=== PATIENT | male | born 1990 | race Caucasian/White ===

== ENCOUNTER 2018-02-08 23:17 | Emergency (ER) | payer SELFPAY ==
[2018-02-08] MEDS ORDERED: Famotidine 20 MG/2 ML SDV IVPUSH ONE (23:43)
[2018-02-08] MEDS ORDERED: Alum Hydrox/Mag Hydrox/Simeth 15 ML, Metoclopramide 5 MG, Lidocaine 2% 5 ML PO ONE ×3 (23:43)
[2018-02-08] MEDS ORDERED: Sodium Chloride 0.9% 2.5 ML Syringe FLUSH PRN ×2 (23:43)
[2018-02-08] MEDS ORDERED: Sodium Chloride 0.9% 10 ML Syringe FLUSH PRN (23:43)
[2018-02-08] MEDS ORDERED: Sodium Chloride 0.9% 1,000 ML IV ONE (23:43)
--- NOTE | 2018-02-08 23:43 | EDM.PDOC ---
ED HPI GENERAL MEDICAL PROBLEM - General Chief Complaint: Abdominal Pain Stated Complaint: PT HAS CHEST PAINS Time Seen by Provider: 02/08/18 23:36 Source of Information: Reports: Patient History Limitations: Reports: No Limitations - History of Present Illness INITIAL COMMENTS - FREE TEXT/NARRATIVE: HISTORY AND PHYSICAL: History of present illness: 27-year-old male presented to emergency department with chief complaint of right lower quadrant and chest pain 6-7 weeks. Patient states that for the past 6-7 weeks he has had mild chest pain with reflux and sore throat. He does take Prilosec on a daily basis for heartburn. States he is also having some right low quadrant pain. Reports fever as well as diarrhea 3 weeks ago. No current symptoms. States that the pain is sharp and pressure-like in his chest as well as right lower quadrant. He's been taking as above Prilosec as well as Tylenol. Denies any history of abdominal surgery. Denies any associated nausea, vomiting, bloody stool, or dark tarry stools. Patient does admit to drinking alcohol for approximately 1 week. States that he does not normally drink every day but when he has days off he does. He currently denies any palpitations, shortness of breath, syncopal episodes, or focal neurologic deficits. On exam patient has sharp right lower quadrant pain on palpation. No other acute abnormalities found. Initial EKG shows normal sinus rhythm with a rate of [address] changes. CBC, CMP, troponin, lipase, urinalysis all unremarkable Review of systems: As per history of present illness and below otherwise all systems reviewed and negative. Past medical history: As per history of present illness and as reviewed below otherwise noncontributory. Surgical history: As per history of present illness and as reviewed below otherwise noncontributory. Social history: No reported history of drug or alcohol abuse. Family history: As per history of present illness and as reviewed below otherwise noncontributory. Physical exam: HEENT: Atraumatic, normocephalic, pupils reactive, negative for conjunctival pallor or scleral icterus, mucous membranes moist, throat clear, neck supple, nontender, trachea midline. Lungs: Clear to auscultation, breath sounds equal bilaterally, chest nontender. Heart: S1S2, regular, negative for clicks, rubs, or JVD. Abdomen: Soft, nondistended, right lower quadrant pain. Negative for masses or hepatosplenomegaly. Negative for costovertebral tenderness. Pelvis: Stable nontender. Genitourinary: Deferred. Rectal: Deferred. Extremities: Atraumatic, negative for cords or calf pain. Neurovascular unremarkable. Neuro: Awake, alert, oriented. Cranial nerves II through XII unremarkable. Cerebellum unremarkable. Motor and sensory unremarkable throughout. Exam nonfocal. Diagnostics: CBC, CMP, troponin, EKG, rapid strep, chest x-ray, CT abdomen and pelvis Therapeutics: 1 L normal saline, famotidine 20 mg IV 1, GI cocktail, Carafate Impression: GERD Atypical chest pain Right lower quadrant pain Plan: CBC, CMP, troponin, EKG, rapid strep, and chest x-ray were all unremarkable. CT abdomen and pelvis was unremarkable for any acute process but did show some hepatic steatosis. I did talk to the patient about this and discussed with him about cessation of all alcohol use as this is most likely the etiology of his hepatic steatosis. I also instructed him to follow-up with a primary care provider as he would most likely benefit from further testing possibly for H. pylori and EGD for his chronic GERD. He should return to the emergency department if he has any new or worsening symptoms. I did give him a prescription for Carafate. Definitive disposition and diagnosis as appropriate pending reevaluation and review of above. chest pain Pain Score (Numeric/FACES): 6 - Related Data Allergies Allergy/AdvReac Type Severity Reaction Status Date / Time No Known Allergies Allergy Verified 02/08/18 23:23 Home Meds: Home Meds . [No Known Home Meds] 02/08/18 [History] Social & Family History - Family History Family Medical History: Noncontributory - Tobacco Use Smoking Status *Q: Never Smoker Second Hand Smoke Exposure: No - Caffeine Use Caffeine Use: Reports: Energy Drinks, Tea - Recreational Drug Use Recreational Drug Use: No ED ROS GENERAL - Review of Systems Review Of Systems: ROS reveals no pertinent complaints other than HPI. ED EXAM, GENERAL - Physical Exam Exam: See Below Course - Vital Signs Last Recorded V/S: Last Vital Signs Temp 98.7 F 02/08/18 23:25 Pulse 66 02/09/18 01:36 Resp 18 02/09/18 01:36 BP 143/94 H 02/09/18 01:36 Pulse Ox 95 02/09/18 00:08 - Orders/Labs/Meds Orders: Active Orders 24 hr Category Date Time Status EKG Documentation Completion [RC] STAT Care 02/08/18 23:43 Active Abdomen Pelvis w Cont [CT] Stat Exams 02/08/18 23:43 Taken Chest 1V Frontal [CR] Stat Exams 02/08/18 23:43 Taken CULTURE STREP A CONFIRMATION [RM] Stat Lab 02/08/18 23:45 Results STREP SCRN A RAPID W CULT CONF [RM] Stat Lab 02/08/18 23:45 Ordered UA W/MICROSCOPIC [URIN] Stat Lab 02/08/18 23:45 Ordered Sodium Chloride 0.9% [Saline Flush] Med 02/08/18 23:43 Active 10 ml FLUSH ASDIRECTED PRN Sodium Chloride 0.9% [Saline Flush] Med 02/08/18 23:43 Active 2.5 ml FLUSH ASDIRECTED PRN Sodium Chloride 0.9% [Saline Flush] Med 02/08/18 23:43 Active 2.5 ml FLUSH ASDIRECTED PRN Saline Lock Insert [OM.PC] Stat Oth 02/08/18 23:43 Ordered Medication Orders Sodium Chloride (Saline Flush) 2.5 ml FLUSH ASDIRECTED PRN PRN Reason: Keep Vein Open Last Admin: 02/08/18 23:41 Dose: 2.5 ml Sodium Chloride (Saline Flush) 10 ml FLUSH ASDIRECTED PRN PRN Reason: Keep Vein Open Last Admin: 02/08/18 23:40 Dose: 10 ml Sodium Chloride (Saline Flush) 2.5 ml FLUSH ASDIRECTED PRN PRN Reason: Keep Vein Open Labs: Laboratory Tests 02/08/18 02/08/18 02/08/18 Range/Units 23:40 23:40 23:40 WBC 8.32 (4.0-11.0) K/uL RBC 5.32 (4.50-5.90) M/uL Hgb 16.6 (13.0-17.0) g/dL Hct 46.3 (38.0-50.0) % MCV 87.0 (80.0-98.0) fL MCH 31.2 (27.0-32.0) pg MCHC 35.9 (31.0-37.0) g/dL RDW Std Deviation 39.1 (28.0-62.0) fl RDW Coeff of Isabelle 12 (11.0-15.0) % Plt Count 261 (150-400) K/uL MPV 10.50 (7.40-12.00) fL Neut % (Auto) 57.0 (48.0-80.0) % Lymph % (Auto) 35.1 (16.0-40.0) % Sac % (Auto) 6.9 (0.0-15.0) % Eos % (Auto) 0.8 (0.0-7.0) % Baso % (Auto) 0.2 (0.0-1.5) % Neut # (Auto) 4.7 (1.4-5.7) K/uL Lymph # (Auto) 2.9 H (0.6-2.4) K/uL Sac # (Auto) 0.6 (0.0-0.8) K/uL Eos # (Auto) 0.1 (0.0-0.7) K/uL Baso # (Auto) 0.0 (0.0-0.1) K/uL Nucleated RBC % 0.0 /100WBC Nucleated RBCs # 0 K/uL INR 1.01 Sodium 139 (136-148) mmol/L Potassium 4.2 (3.5-5.1) mmol/L Chloride 103 (98-107) mmol/L Carbon Dioxide 28.3 (21.0-32.0) mmol/L BUN 11 (7.0-18.0) mg/dL Creatinine 1.1 (0.8-1.3) mg/dL Est Cr Clr Drug Dosing 108.76 mL/min Estimated GFR (MDRD) > 60.0 ml/min Glucose 84 (74-106) mg/dL Calcium 9.3 (8.5-10.1) mg/dL Total Bilirubin 0.6 (0.2-1.0) mg/dL AST 47 H (15-37) IU/L ALT 141 H (14-63) IU/L Alkaline Phosphatase 104 (46-116) U/L Troponin I < 0.050 (0.000-0.056) ng/mL Total Protein 8.2 (6.4-8.2) g/dL Albumin 4.2 (3.4-5.0) g/dL Globulin 4.0 H (2.0-3.5) g/dL Albumin/Globulin Ratio 1.1 L (1.3-2.8) Amylase 33 (25-115) U/L Lipase 113 (73-393) U/L Urine Color Urine Appearance Urine pH (5.0-8.0) Ur Specific Derwent (1.001-1.035) Urine Protein (NEGATIVE) mg/dL Urine Glucose (UA) (NEGATIVE) mg/dL Urine Ketones (NEGATIVE) mg/dL Urine Occult Blood (NEGATIVE) Urine Nitrite (NEGATIVE) Urine Bilirubin (NEGATIVE) Urine Urobilinogen (<2.0) EU/dL Ur Leukocyte Esterase (NEGATIVE) Urine RBC (0-2/HPF) Urine WBC (0-5/HPF) Ur Epithelial Cells (NONE-FEW) Urine Bacteria (NEGATIVE) Urine Mucus (NONE-MOD) 02/08/18 Range/Units 23:45 WBC (4.0-11.0) K/uL RBC (4.50-5.90) M/uL Hgb (13.0-17.0) g/dL Hct (38.0-50.0) % MCV (80.0-98.0) fL MCH (27.0-32.0) pg MCHC (31.0-37.0) g/dL RDW Std Deviation (28.0-62.0) fl RDW Coeff of Isabelle (11.0-15.0) % Plt Count (150-400) K/uL MPV (7.40-12.00) fL Neut % (Auto) (48.0-80.0) % Lymph % (Auto) (16.0-40.0) % Sac % (Auto) (0.0-15.0) % Eos % (Auto) (0.0-7.0) % Baso % (Auto) (0.0-1.5) % Neut # (Auto) (1.4-5.7) K/uL Lymph # (Auto) (0.6-2.4) K/uL Sac # (Auto) (0.0-0.8) K/uL Eos # (Auto) (0.0-0.7) K/uL Baso # (Auto) (0.0-0.1) K/uL Nucleated RBC % /100WBC Nucleated RBCs # K/uL INR Sodium (136-148) mmol/L Potassium (3.5-5.1) mmol/L Chloride (98-107) mmol/L Carbon Dioxide (21.0-32.0) mmol/L BUN (7.0-18.0) mg/dL Creatinine (0.8-1.3) mg/dL Est Cr Clr Drug Dosing mL/min Estimated GFR (MDRD) ml/min Glucose (74-106) mg/dL Calcium (8.5-10.1) mg/dL Total Bilirubin (0.2-1.0) mg/dL AST (15-37) IU/L ALT (14-63) IU/L Alkaline Phosphatase (46-116) U/L Troponin I (0.000-0.056) ng/mL Total Protein (6.4-8.2) g/dL Albumin (3.4-5.0) g/dL Globulin (2.0-3.5) g/dL Albumin/Globulin Ratio (1.3-2.8) Amylase (25-115) U/L Lipase (73-393) U/L Urine Color YELLOW Urine Appearance CLEAR Urine pH 6.0 (5.0-8.0) Ur Specific Derwent 1.010 (1.001-1.035) Urine Protein NEGATIVE (NEGATIVE) mg/dL Urine Glucose (UA) NEGATIVE (NEGATIVE) mg/dL Urine Ketones NEGATIVE (NEGATIVE) mg/dL Urine Occult Blood NEGATIVE (NEGATIVE) Urine Nitrite NEGATIVE (NEGATIVE) Urine Bilirubin NEGATIVE (NEGATIVE) Urine Urobilinogen 0.2 (<2.0) EU/dL Ur Leukocyte Esterase NEGATIVE (NEGATIVE) Urine RBC NONE SEEN (0-2/HPF) Urine WBC 0-2 (0-5/HPF) Ur Epithelial Cells RARE (NONE-FEW) Urine Bacteria RARE (NEGATIVE) Urine Mucus LIGHT (NONE-MOD) Meds: Medications Generic Name Dose Route Start Last Admin Trade Name Freq PRN Reason Stop Dose Admin Sodium Chloride 2.5 ml 02/08/18 23:43 02/08/18 23:41 Saline Flush FLUSH 2.5 ml ASDIRECTED PRN Administration Keep Vein Open Sodium Chloride 10 ml 02/08/18 23:43 02/08/18 23:40 Saline Flush FLUSH 10 ml ASDIRECTED PRN Administration Keep Vein Open Sodium Chloride 2.5 ml 02/08/18 23:43 Saline Flush FLUSH ASDIRECTED PRN Keep Vein Open Discontinued Medications Generic Name Dose Route Start Last Admin Trade Name Marybel PRN Reason Stop Dose Admin Al Hydroxide/Mg Hydroxide 15 0 ml 02/08/18 23:43 02/08/18 23:56 ml/ Metoclopramide HCl 5 mg/ PO 02/08/18 23:44 1 each Lidocaine HCl 5 ml ONETIME ONE Administration Famotidine 20 mg 02/08/18 23:43 02/08/18 23:55 Pepcid IVPUSH 02/08/18 23:44 20 mg ONETIME ONE Administration Sodium Chloride 1,000 mls @ 999 mls/hr 02/08/18 23:43 02/08/18 23:52 Normal Saline IV 02/09/18 00:43 999 mls/hr BOLUS ONE Administration Iopamidol 100 ml 02/09/18 00:44 02/09/18 00:45 Isovue Multipack-370 (76%) IVPUSH 02/09/18 00:45 100 ml ONETIME STA Administration Departure - Departure Time of Disposition: 01:56 Disposition: Home, Self-Care 01 Condition: Good Clinical Impression: Hepatic steatosis GERD (gastroesophageal reflux disease) Qualifiers: Esophagitis presence: esophagitis presence not specified Qualified Code(s): K21.9 - Gastro-esophageal reflux disease without esophagitis - Discharge Information Referrals: PCP,None [Primary Care Provider] - Forms: ED Department Discharge Additional Instructions: My general discharge The following information is given to patients seen in the emergency department who are being discharged to home. This information is to outline your options for follow-up care. We provide all patients seen in our emergency department with a follow-up referral. The need for follow-up, as well as the timing and circumstances, are variable depending upon the specifics of your emergency department visit. If you don't have a primary care physician on staff, we will provide you with a referral. We always advise you to contact your personal physician following an emergency department visit to inform them of the circumstance of the visit and for follow-up with them and/or the need for any referrals to a consulting specialist. The emergency department will also refer you to a specialist when appropriate. This referral assures that you have the opportunity for follow-up care with a specialist. All of these measure are taken in an effort to provide you with optimal care, which includes your follow-up. Under all circumstances we always encourage you to contact your private physician who remains a resource for coordinating your care. When calling for follow-up care, please make the office aware that this follow-up is from your recent emergency room visit. If for any reason you are refused follow-up, please contact the [facility] Emergency Department at and asked to speak to the emergency department charge nurse. [facility] Primary Care [address] [place] [id number] Please call number above and schedule a follow-up appointment with a primary care provider. Be sure to tell them that you were seen in the emergency department and they wish for you to be seen as soon as possible. Take medication as prescribed. You may benefit for further evaluation of your heartburn with possible H. pylori testing as well as EGD. This can be discussed with your primary care provider. Return emergency department if any new or worsening symptoms. - My Orders Last 24 Hours: My Active Orders 02/08/18 23:43 EKG Documentation Completion [RC] STAT Abdomen Pelvis w Cont [CT] Stat Chest 1V Frontal [CR] Stat Sodium Chloride 0.9% [Saline Flush] 10 ml FLUSH ASDIRECTED PRN Sodium Chloride 0.9% [Saline Flush] 2.5 ml FLUSH ASDIRECTED PRN Sodium Chloride 0.9% [Saline Flush] 2.5 ml FLUSH ASDIRECTED PRN Saline Lock Insert [OM.PC] Stat 02/08/18 23:45 CULTURE STREP A CONFIRMATION [RM] Stat STREP SCRN A RAPID W CULT CONF [RM] Stat UA W/MICROSCOPIC [URIN] Stat - Assessment/Plan Last 24 Hours: My Active Orders 02/08/18 23:43 EKG Documentation Completion [RC] STAT Abdomen Pelvis w Cont [CT] Stat Chest 1V Frontal [CR] Stat Sodium Chloride 0.9% [Saline Flush] 10 ml FLUSH ASDIRECTED PRN Sodium Chloride 0.9% [Saline Flush] 2.5 ml FLUSH ASDIRECTED PRN Sodium Chloride 0.9% [Saline Flush] 2.5 ml FLUSH ASDIRECTED PRN Saline Lock Insert [OM.PC] Stat 02/08/18 23:45 CULTURE STREP A CONFIRMATION [RM] Stat STREP SCRN A RAPID W CULT CONF [RM] Stat UA W/MICROSCOPIC [URIN] Stat
[2018-02-09 00:21] LABS: CHLORIDE,CL 103 mmol/L (98-107); SODIUM,NA 139 mmol/L (136-148)
[2018-02-09] MEDS ORDERED: Iopamidol 755 MG/ML 500 ML Multipack Bottle IVPUSH STA (00:44)
--- NOTE | 2018-02-09 19:46 | CT ---
EXAM DATE: 02/08/18 PATIENT'S AGE: 27 Patient: TAURUS REY Facility: [place], [place] Site . Site : 1990 Study: CT Abdomen/Pelvis [id number]/31/2018 12:48:26 AM Ordering Physician: Sanford Middleton Final Report: INDICATION: Right lower quadrant pain and fever TECHNIQUE: CT abdomen and pelvis acquired with IV contrast. COMPARISON: None available FINDINGS: Lower chest: Unremarkable. Liver: Hepatic steatosis. Spleen: Unremarkable. Pancreas: Unremarkable. Gallbladder and bile ducts: Unremarkable. Adrenal glands: Unremarkable. Kidneys: Unremarkable. GI tract: Unremarkable. No evidence of appendicitis. Vascular structures: Unremarkable. Lymph nodes: No abnormally enlarged lymph nodes. Miscellaneous: No free air or significant free fluid. Pelvic Organs: Unremarkable. Bones: Unremarkable for age. IMPRESSION: No evidence of an acute process in the abdomen or pelvis. Hepatic steatosis. Dictated by David Samuels MD @ 02/09/2018 1:43:25 AM Please note that all CT scans at this facility use dose modulation, iterative reconstruction, and/or weight-based dosing when appropriate to reduce radiation dose to as low as reasonably achievable. Dictated by: David Samuels MD @ 02/09/2018 01:43:30 (Electronic Signature) Report Signed by Proxy. [facility]
--- NOTE | 2018-02-09 19:47 | CR ---
EXAM DATE: 02/08/18 PATIENT'S AGE: 27 Patient: TAURUS REY Facility: [place], [place] Site . Site : 1990 Study: XRay Chest [id number]/31/2018 12:49:44 AM Ordering Physician: Sanford Middleton Final Report: INDICATION: Cough TECHNIQUE: Chest radiograph 1 view COMPARISON: None FINDINGS: Mediastinum: The mediastinum is normal in appearance. The heart silhouette is normal in size and morphology. Lung: Both lungs are unremarkable in appearance. No sign of pleural effusion seen. No pneumothorax is identified. Musculoskeletal: Unremarkable for age. IMPRESSION: 1. No acute cardiopulmonary disease is seen. Dictated by: Nathaniel Sheriff MD @ 02/09/2018 00:50:27 (Electronic Signature) Report Signed by Proxy. [facility]
== END 2018-02-09 02:10 | disposition home or self-care (01) ==
LOC: MW.ED 23:17
DX: K76.0 Fatty (change of) liver, not elsewhere classified (principal); K21.9 Gastro-esophageal reflux disease without esophagitis
CPT/HCPCS: 36415; 71045; 74177; 80053; 81001; 82150; 83690; 84484; 85025; 85610; 87081; 87880; 93005; 96361; 96374; 99285; A9270; J3490; J7040; Q9967

== ENCOUNTER 2024-08-10 18:29 | Emergency (ER) | payer BC ==
[2024-08-10] MEDS ORDERED: Sodium Chloride 0.9% 2.5 ML Syringe FLUSH PRN (19:04)
[2024-08-10] MEDS: Lidocaine 2% Viscous Solution 15 ML UD PO ONE (19:15)
[2024-08-10] MEDS: Ketorolac 30 MG/ML SDV IVPUSH ONE (19:15)
[2024-08-10] MEDS: Sodium Chloride 0.9% 10 ML Syringe FLUSH PRN (19:15)
[2024-08-10] MEDS: Sodium Chloride 0.9% 1,000 ML IV ONE (19:15)
[2024-08-10 19:16] LABS: BASOPHILS ABSOLUTE AUTO 0.03 K/uL (0.00-0.20); BASOPHILS PERCENT AUTO 0.3 % (0.0-1.0); EOSINOPHILS ABSOLUTE AUTO 0.04 K/uL (0.00-0.45); EOSINOPHILS PERCENT AUTO 0.4 % (0.0-6.0); HEMATOCRIT 43.2 % (42.0-52.0); HEMOGLOBIN 15.7 g/dL (14.0-18.0); IMMATURE GRAN ABSOLUTE AUTO 0.02 K/uL (0.00-0.05); IMMATURE GRAN PERCENT AUTO 0.2 % (0.0-0.4); LYMPHOCYTES PERCENT AUTO 38.1 % (24.0-44.0); MEAN CORPUSCULAR HEMOGLOBIN 30.3 pg (28.0-32.0); MEAN CORPUSCULAR HGB CONC 36.3 g/dL (32.0-36.0); MEAN CORPUSCULAR VOLUME 83.4 fL (83.0-99.0); MEAN PLATELET VOLUME 10.2 fL (9.4-12.4); MONOCYTES PERCENT AUTO 7.2 % (0.0-8.0); NEUTROPHILS ABSOLUTE AUTO 5.21 K/uL (1.80-7.70); NEUTROPHILS PERCENT AUTO 53.8 % (41.0-71.0); PLATELET COUNT,PLT 293 K/uL (150-400); RED BLOOD CELL COUNT 5.18 M/uL (4.52-5.90)
[2024-08-10] MEDS: Iopamidol 755 MG/ML 500 ML Multipack Bottle IVPUSH ONE (19:33)
[2024-08-10 19:50] LABS: A/G RATIO 1.2 (0.9-1.6); ALBUMIN 4.2 g/dL (3.4-5.0); BILIRUBIN TOTAL 0.6 mg/dL (0.2-1.0); CARBON DIOXIDE,CO2 26.4 mmol/L (21.0-32.0); EST CRCL DRUG DOSING (CG) 109.81 mL/min; MAGNESIUM 1.8 mg/dL (1.8-2.4); POTASSIUM,K 3.7 mmol/L (3.5-5.1); PROTEIN TOTAL,TP 7.6 g/dL (6.4-8.2)
[2024-08-10 19:52] LABS: LACTIC ACID 2.1 mmol/L (0.4-2.0)
== END 2024-08-10 22:03 | disposition home or self-care (01) ==
LOC: MW.ED 18:29
DX: J02.9 Acute pharyngitis, unspecified (principal); E87.20 Acidosis, unspecified; I10 Essential (primary) hypertension; Z79.899 Other long term (current) drug therapy; Z75.8 Other problems related to medical facilities and other health care
CPT/HCPCS: 36415; 70491; 71260; 80053; 83605; 83690; 83735; 85025; 86308; 87428; 87651; 96361; 96374; 96375; 99284; A9270; J1100; J1885; J7030; Q9967